=== PATIENT | female | born 1995 | race Caucasian/White ===

== ENCOUNTER 2024-03-27 16:42 | Emergency (ER) | payer SELFPAY ==
[2024-03-27 16:44] VITALS: BP 114/68; PULSE 65; RESP 16; TEMP 36.7; O2SAT 97; BMI 29.2
[2024-03-27 16:50] VITALS: BP 114/68; PULSE 73; RESP 16; O2SAT 96
--- NOTE | 2024-03-27 17:14 | ECG_ITS ---
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 Measurements Intervals [place] Rate: 68 P: 20 RI: 140 QRS: 6 QRSD: 95 T: 32 QT: 402 QTc: 430 Interpretive Statements SINUS RHYTHM POSSIBLE RIGHT VENTRICULAR CONDUCTION DELAY [RSR (QR) IN V1/V2] No previous ECG available for comparison Electronically Signed On 03-28-2024 9:53:59 CDT by Saeed Romero M.D. [email or web address]
[2024-03-27 17:20] VITALS: BP 99/73; PULSE 67; RESP 14; O2SAT 100
[2024-03-27 17:27] LABS: Basophils % 0.4 %; Eosinophils # 0.3 10^3/uL (0.0-0.8); Hematocrit 39.8 % (36-47); Lymphocytes # 2.7 10^3/uL (0.8-4.8); Lymphocytes % 31.4 %; Mean Corpuscular HGB Conc 33.7 g/dL (30-55); Mean Corpuscular Hemoglobin 31.5 pg (27-33); Mean Corpuscular Volume 93.6 fl (85-98); Mean Platelet Volume 9.7 fL (7.4-10.4); Monocytes # 0.5 10^3/uL (0.2-0.9); Monocytes % 5.7 %; Neutrophils # 5.02 10^3/uL (1.8-7.7); Neutrophils % 59.4 %; Nucleated Red Blood Cells % 0 %; Platelet Count 321 10^3/cmm (157-399); Red Blood Count 4.25 10^6/uL (3.85-5.65); Red Cell Distribution Width 11.7 % (12.1-15.1); White Blood Count 8.44 10^3/uL (3.29-11.43)
[2024-03-27] MEDS: sodium chloride 0.9% 1,000 ML 999 ML IV ×2 (17:31)
[2024-03-27 17:37] LABS: Anion Gap 17.9 (5-19); Blood Urea Nitrogen 18 mg/dL (6-20); Calcium 9.7 mg/dL (8.5-10.5); Carbon Dioxide 18 mmol/L (22-29); Chloride 109 mmol/L (98-107); Creatine Phosphokinase 115 U/L (26-192); Creatinine Clr Calc Pharmacy 105.7931; Glomerular Filtration Rate 83.7 mL/min (90-130); Glucose 142 mg/dL (65-115); Lipase 151 U/L (13-60); Osmolality Calculated 296 mOsm/kg (285-295); Potassium 3.9 mmol/L (3.5-5.1); Sodium 141 mmol/L (136-145)
[2024-03-27 17:42] LABS: Add Urine Microscopic? NO; Charge for UA Resulting for Rev
[2024-03-27 17:50] LABS: HCG Qualitative Urine. Negative (Negative); Urine Color Yellow (Yellow)
[2024-03-27 17:51] LABS: Bilirubin Urine Neg (Negative); Blood Urine Neg (Negative); Glucose Urine UA Norm (Normal); Ketones Urine Negative (Negative); Leukocyte Esterase Urine Negative (Negative); Nitrate Urine Negative (Negative); Protein Urine Neg (Negative); Urine Appearance Clear (CLEAR); Urobilinogen Urine Norm (Negative); pH Urine 7 (5-7)
[2024-03-27] MEDS: ketorolac 30 mg/mL INJ 15 MG IVP (17:54)
[2024-03-27 18:01] LABS: Amphetamines Screen Urine Negative (Negative); Barbiturates Screen Urine Negative (Negative); Benzodiazepines Screen Urine Negative (Negative); Cocaine Screen Urine Negative (Negative); Opiate Screen Urine Negative (Negative); PCP Screen Urine Negative (Negative); THC Screen Urine Negative (Negative)
--- NOTE | 2024-03-27 19:55 | ED_ITS ---
HPI - Nausea/Vomiting/Diarrhea 2 General: Chief complaint: Nausea/Vomiting/Diarrhea Stated complaint: OVERHEATED AT WORK Time Seen by Provider: 03/27/24 16:47 Source: patient and EMS Mode of arrival: EMS Limitations: no limitations History of Present Illness: Patient arrived via EMS. 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 She was sick 2 days ago with nausea vomiting. Working out in the heat yesterday and then again today. Had some chest pain earlier in the day as well also short time. Has a history of gallbladder and pancreatitis problems. Denies any abdominal pain or chest pain currently. Has been having issues with cramps today. Review of Systems 2 General: Reports: 10 or more systems reviewed and unremarkable except in HPI and below Physical Exam 2 Const: COMMON NORMALS: no acute distress, average body habitus, patient oriented x3, healthy appearing, alert and well nourished GENERAL APPEARANCE: well kempt, well developed and other (Appears to be feeling ill) HENMT: COMMON NORMALS: normocephalic, atraumatic, external ears normal and moist oral mucous membranes HEAD & SCALP: normocephalic and atraumatic E XTERNAL EAR: Yes external ears normal Eye: COMMON NORMALS: Equal, round and reactive pupils present, EOMs intact bilaterally and conjunctivae normal CONJUNCTIVA: Yes conjunctivae normal P UPIL: Yes Equal, round and reactive pupils present Neck/C-Spine: COMMON NORMALS: full ROM, no lymphadenopathy and supple Chest: CHEST: Yes Symmetrical chest wall rise and No Surgical scars present (Chest) Resp: COMMON NORMALS: normal respiratory effort, No retractions, No use of accessory muscles and clear to auscultation bilaterally AUSCULTATION: clear to auscultation bilaterally Cardio: COMMON NORMALS: regular rate, regular rhythm, S1 normal heart sound present, S2 normal heart sound present, No gallops present (Cardio), No clicks present (Cardio), No murmurs present (Cardio) and No rub (Cardio) RATE: r egular rate RHYTHM: regular rhythm HEART SOUNDS: S1 normal heart sound present, S2 normal heart sound present and no murmurs PERIPHERAL PULSES: o ther (Radial pulses 2+ and symmetric) GI: COMMON NORMALS: Soft to palpation, non-tender and no masses INSPECTION: No abdominal distension PALPATION: Yes Soft to palpation, No Guarding due to palpation present (GI) and No Rebound tenderness present : COMMON NORMALS: Yes no CVA tenderness BLADDER/KIDNEY EXAM: Yes no CVA tenderness Back/Pelvis: COMMON NORMALS: no CVA tenderness Extremity: COMMON NORMALS: normal to inspection, full ROM, capillary refill normal and no clubbing, cyanosis or edema Neuro: COMMON NORMALS: patient oriented x3 SENSORIUM/ORIENTATION: Yes alert Psych: APPEARANCE: Yes well kempt Skin: COMMON NORMALS: no rashes or lesions noted, no wounds, turgor normal and no jaundice GENERAL SKIN EXAM: no rashes or lesions noted and turgor normal Course 2 Vital Signs: Vital signs: Vital Signs Temperature 98.0 F 03/27/24 16:44 Pulse Rate 67 03/27/24 17:20 Respiratory Rate 14 03/27/24 17:20 Blood Pressure 99/73 03/27/24 17:20 Pulse Oximetry 100 03/27/24 17:20 Oxygen Delivery Me thod Room Air 03/27/24 17:20 MDM - Nausea/Vomiting/Diarrhea Medical Decision Making Labs mostly unremarkable. CMP does show a decreased bicarb and patient has a mildly elevated lipase. However no epigastric pain. Patient is a history of pancreatitis. It appears she has been out in the heat the past 2 days for having a stomach virus the day before. Suspect she was just already completed and now had some acute heat exhaustion. Patient was given 2 L of saline and will be discharged patient advised to stay in the rest of today and tomorrow. Medical Records I reviewed the patient's medical records. Lab Data I reviewed the patient's lab results. 03/27/24 Unknown 03/27/24 Unknown Laboratory Results WBC 8.44 10^3/uL (3.29-11.43) 03/27/24 Unknown RBC 4.25 10^6/uL (3.85-5.65) 03/27/24 Unknown Hgb 13.40 g/dL (11.27-16.99) 03/27/24 Unknown Hct 39.8 % (36-47) 03/27/24 Unknown MCV 93.6 fl (85-98) 03/27/24 Unknown MCH 31.5 pg (27-33) 03/27/24 Unknown MCHC 33.7 g/dL (30-55) 03/27/24 Unknown RDW 11.7 % (12.1-15.1) L 03/27/24 Unknown Plt Count 321 10^3/cmm (157-399) 03/27/24 Unknown MPV 9.7 fL (7.4-10.4) 03/27/24 Unknown Neut % (Auto) 59.4 % 03/27/24 Unknown Lymph % (Auto) 31.4 % 03/27/24 Unknown [place] % (Auto) 5.7 % 03/27/24 Unknown Eos % (Auto) 3.0 % 03/27/24 Unknown Baso % (Auto) 0.4 % 03/27/24 Unknown Neut # (Auto) 5.02 10^3/uL (1.8-7.7) 03/27/24 Unknown Lymph # (Auto) 2.7 10^3/uL (0.8-4.8) 03/27/24 Unknown [place] # (Auto) 0.5 10^3/uL (0.2-0.9) 03/27/24 Unknown Eos # (Auto) 0.3 10^3/uL (0.0-0.8) 03/27/24 Unknown Baso # (Auto) 0.0 10^3/uL (0.0-0.1) 03/27/24 Unknown Nucleated RBC % (auto) 0 % 03/27/24 Unknown Nucleated RBCs # 0.0 /100WBC 03/27/24 Unknown Sodium 141 mmol/L (136-145) 03/27/24 Unknown Potassium 3.9 mmol/L (3.5-5.1) 03/27/24 Unknown Chloride 109 mmol/L (98-107) H 03/27/24 Unknown Carbon Dioxide 18 mmol/L (22-29) L 03/27/24 Unknown Anion Gap 17.9 (5-19) 03/27/24 Unknown BUN 18 mg/dL (6-20) 03/27/24 Unknown Creatinine 0.8 mg/dL (0.5-0.9) 03/27/24 Unknown GFR Calculation 83.7 mL/min (90-130) L 03/27/24 Unknown Glucose 142 mg/dL (65-115) H 03/27/24 Unknown Calculated Osmolality 296 mOsm/kg (285-295) H 03/27/24 Unknown Calcium 9.7 mg/dL (8.5-10.5) 03/27/24 Unknown Creatine Kinase 115 U/L (26-192) 03/27/24 Unknown Lipase 151 U/L (13-60) H 03/27/24 Unknown HCG, Qual Negative (Negative) 03/27/24 17:35 Urine Color Yellow (Yellow) 03/27/24 17:35 Urine Appearance Clear (CLEAR) 03/27/24 17:35 Urine pH 7 (5-7) 03/27/24 17:35 Ur Specific [place] 1.010 (1.005-1.030) 03/27/24 17:35 Urine Protein Neg (Negative) 03/27/24 17:35 Urine Glucose (UA) Norm (Normal) 03/27/24 17:35 Urine Ketones Negative (Negative) 03/27/24 17:35 Urine Blood Neg (Negative) 03/27/24 17:35 Urine Nitrate Negative (Negative) 03/27/24 17:35 Urine Bilirubin Neg (Negative) 03/27/24 17:35 Urine Urobilinogen Norm mg/dL (Negative) 03/27/24 17:35 Ur Leukocyte Esterase Negative (Negative) 03/27/24 17:35 Urine Opiates Screen Negative ng/mL (Negative) 03/27/24 17:35 Ur Barbiturates Screen Negative ng/mL (Negative) 03/27/24 17:35 Ur Phencyclidine Scrn Negative ng/mL (Negative) 03/27/24 17:35 Ur Amphetamines Screen Negative ng/mL (Negative) 03/27/24 17:35 U Benzodiazepines Scrn Negative ng/mL (Negative) 03/27/24 17:35 Urine Cocaine Screen Negative ng/mL (Negative) 03/27/24 17:35 U Marijuana (THC) Screen Negative ng/mL (Negative) 03/27/24 17:35 No radiology studies performed this visit Discharge Plan Discharge Patient Disposition: Home Clinical Impression: Cramps, muscle, general Heat exhaustion Qualifiers: Encounter type: initial encounter Qualified Code(s): T67.5XXA - Heat exhaustion, unspecified, initial encounter Condition: Stable Discharge Orders: Discharge ED (Routine); Ordered 03/27/24 Ordered By: Codey Garcia Discharge Diet: Usual diet Patient Instructions: Heat Cramps - Adult, Heat Exhaustion (ED) Activity Restrictions/Additional Instructions: Stands the rest of today as well as tomorrow try to stay cool. Make sure to stay well-hydrated. Coding Level of Care Code ED Route Contractor for Niko Castelan
[2024-03-27 20:33] VITALS: BP 114/71; PULSE 66; RESP 16; TEMP 36.7; O2SAT 100
[2024-03-27] MEDS: acetaminophen 500 mg Tablet 1000 MG PO (20:33)
== END 2024-03-27 20:34 | disposition home or self-care (01) ==
PROVIDERS: Emergency Provider Emergency Medicine
DX: T67.5XXA Heat exhaustion, unspecified, initial encounter (principal); R25.2 Cramp and spasm; X30.XXXA Exposure to excessive natural heat, initial encounter
CPT/HCPCS: 80048; 80306; 81003; 81025; 82550; 83690; 85025; 93005; 96361; 96374; 99284; J1885; J7030